=== PATIENT | male | born 1965 | race Caucasian/White ===

== ENCOUNTER 2024-01-04 15:27 | Emergency (ER) | payer OTHER ==
[~2024-01-04] VITALS: Ht 172.7 cm; Wt 78.9 kg
[2024-01-04] MEDS: IV NS 0.9% 1,000 ML BAG IV ONE (16:30)
[2024-01-04 16:54] LABS: BASOPHILS % (AUTO) 0.4 % (0.0-2.0); HEMATOCRIT 42 % (39-51); HEMOGLOBIN 13.7 g/dL (13.5-17.5); LYMPHOCYTES # (AUTO) 0.4 K/uL (0.8-4.8); LYMPHOCYTES % (AUTO) 5.7 % (20.0-44.0); MEAN CORPUSCULAR HEMOGLOBIN 31 PG (26.0-33.0); MEAN CORPUSCULAR HGB CONC 33 g/dl (31.0-36.0); MEAN CORPUSCULAR VOLUME 96 fL (80-96); MONOCYTES # (AUTO) 0.3 K/uL (0.1-1.30); MONOCYTES % (AUTO) 4.3 % (2.0-12.0); NEUTROPHILS # (AUTO) 5.7 K/uL (1.8-8.9); NEUTROPHILS % (AUTO) 89.6 % (43.0-81.0); PLATELET COUNT (AUTO) 110 K/uL (150-450); RED BLOOD CELL COUNT(AUTO) 4.35 MIL/uL (4.5-6.0); RED CELL DISTRIBUTION WIDTH 14.7 % (11.5-15.0); WHITE BLOOD COUNT (AUTO) 6.3 K/uL (4.3-11.0)
[2024-01-04 17:06] LABS: CALCIUM, SERUM 8.7 mg/dL (8.5-10.1); CREATININE 1.2 mg/dL (0.6-1.3); POTASSIUM 3.2 mmol/L (3.5-5.1)
[2024-01-04 17:22] LABS: BILIRUBIN,DIRECT 0.1 mg/dL (0.0-0.2); BILIRUBIN,TOTAL 0.3 mg/dL (0.2-1.0); TOTAL PROTEIN, SERUM 7.7 g/dL (6.4-8.2)
[2024-01-04 19:06] LABS: APPEARANCE,URINE CLEAR (CLEAR); BILIRUBIN,URINE NEGATIVE (NEGATIVE); BLOOD, URINE TRACE-INTA Ery/uL (NEGATIVE); COLOR,URINE YELLOW (YELLOW); KETONES,URINE 1+ mg/dL (NEGATIVE); LEUKOCYTE ESTERASE ,URINE NEGATIVE (NEGATIVE); NITRITE, URINE NEGATIVE (NEGATIVE); PROTEIN,URINE TRACE mg/dl (NEGATIVE); UGLUCOSE NEGATIVE (NEGATIVE); UROBILINOGEN,URINE 0.2 EU/dL (0.2)
[2024-01-04 19:08] LABS: WBC,URINE 0-2 /HPF (0-3)
[2024-01-04 19:09] LABS: ADD URINE CULTURE NO; BACTERIA,URINE None seen /HPF (None Seen)
[2024-01-04 20:16] VITALS: BP 126/85; TEMP 98.3; O2SAT 97
== END 2024-01-04 20:16 | disposition home or self-care (01) ==
LOC: EDBD 16:01 → ER 16:01
DX: T67.5XXA Heat exhaustion, unspecified, initial encounter (principal); E86.0 Dehydration; F19.10 Other psychoactive substance abuse, uncomplicated; F10.10 Alcohol abuse, uncomplicated; R42 Dizziness and giddiness; R00.0 Tachycardia, unspecified; Z60.2 Problems related to living alone; X58.XXXA Exposure to other specified factors, initial encounter; Y93.89 Activity, other specified; Y92.89 Other specified places as the place of occurrence of the external cause; Y99.8 Other external cause status; Y90.9 Presence of alcohol in blood, level not specified
CPT/HCPCS: 99283; 96360; 96361; 85025; 80048; 82550; 87086; 83690; 80076; 81001; 36415; 82553; J7030

== ENCOUNTER 2024-04-11 13:51 | Inpatient (IN) | payer OTHER ==
[~2024-04-11] VITALS: Ht 175.3 cm; Wt 77.8 kg
[2024-04-11] MEDS: EZETIMIBE 10 MG TABLET PO SCH (03:57)
[2024-04-11] MEDS: FINASTERIDE (5 MG) 5 MG TABLET PO SCH (03:57)
[2024-04-11] MEDS: clonazePAM 1 MG TABLET PO SCH (03:57)
[2024-04-11 15:10] LABS: BASOPHILS % (AUTO) 0.7 % (0.0-2.0); EOSINOPHILS % (AUTO) 0.4 % (0.0-6.0); HEMATOCRIT 40 % (39-51); HEMOGLOBIN 13.1 g/dL (13.5-17.5); LYMPHOCYTES # (AUTO) 1.3 K/uL (0.8-4.8); LYMPHOCYTES % (AUTO) 31.7 % (20.0-44.0); MEAN CORPUSCULAR HEMOGLOBIN 29 PG (26.0-33.0); MEAN CORPUSCULAR HGB CONC 33 g/dl (31.0-36.0); MEAN CORPUSCULAR VOLUME 90 fL (80-96); MONOCYTES # (AUTO) 0.3 K/uL (0.1-1.30); MONOCYTES % (AUTO) 8.5 % (2.0-12.0); NEUTROPHILS # (AUTO) 2.4 K/uL (1.8-8.9); NEUTROPHILS % (AUTO) 58.7 % (43.0-81.0); PLATELET COUNT (AUTO) 117 K/uL (150-450); RED BLOOD CELL COUNT(AUTO) 4.46 MIL/uL (4.5-6.0); RED CELL DISTRIBUTION WIDTH 13.8 % (11.5-15.0); WHITE BLOOD COUNT (AUTO) 4.1 K/uL (4.3-11.0)
[2024-04-11 15:39] LABS: ALANINE AMINOTRANSFERASE 27 U/L (12-78); ALBUMIN 3.8 g/dL (3.4-5.0); ALKALINE PHOSPHATASE 40 U/L (46-116); ASPARTATE AMINOTRANSFERASE 20 U/L (15-37); BILIRUBIN,DIRECT 0.1 mg/dL (0.0-0.2); BILIRUBIN,TOTAL 0.3 mg/dL (0.2-1.0); CALCIUM, SERUM 8.9 mg/dL (8.5-10.1); CARBON DIOXIDE 27 mmol/L (21-32); CHLORIDE 108 mmol/L (98-107); GLUCOSE 86 mg/dL (74-106); POTASSIUM 3.8 mmol/L (3.5-5.1); SODIUM SERUM 141 mmol/L (136-145); UREA NITROGEN, BLOOD 15 mg/dL (7-18)
[2024-04-11 15:41] LABS: ACETAMINOPHEN <10 ug/ml (10-30); ALCOHOL, BLOOD < 3 mg/dL (0-10)
[2024-04-11] MEDS: IV NS 0.9% 1,000 ML BAG IV ONE (16:17)
[2024-04-11] MEDS ORDERED: LORAZEPAM INJ 2 MG/ML VIAL IV ONE (17:00)
[2024-04-11 17:21] LABS: APPEARANCE,URINE CLEAR (CLEAR); BILIRUBIN,URINE 1+ (NEGATIVE); BLOOD, URINE NEGATIVE Ery/uL (NEGATIVE); COLOR,URINE DARK YELLOW (YELLOW); KETONES,URINE TRACE mg/dL (NEGATIVE); LEUKOCYTE ESTERASE ,URINE NEGATIVE (NEGATIVE); NITRITE, URINE NEGATIVE (NEGATIVE); PROTEIN,URINE TRACE mg/dl (NEGATIVE); UGLUCOSE NEGATIVE (NEGATIVE)
[2024-04-11 17:30] LABS: ADD URINE CULTURE YES; BACTERIA,URINE 1+ /HPF (None Seen); MUCUS,URINE Few /LPF (None Seen); SQUAMOUS EPITHELIAL CELL,UR None Seen /HPF (None Seen)
[2024-04-11 17:34] LABS: AMPHETAMINE, URINE NEGATIVE (NEGATIVE); BARBITURATE, URINE NEGATIVE (NEGATIVE); COCCAINE, URINE NEGATIVE (NEGATIVE); OPIATE, URINE NEGATIVE (NEGATIVE); PHENCYCLIDINE SCREEN,URINE NEGATIVE (NEGATIVE)
[2024-04-11] MEDS ORDERED: SERT100T PO (17:34)
[2024-04-11] MEDS ORDERED: ATOM18CA PO (17:34)
[2024-04-11] MEDS ORDERED: EZET10TA15 PO (17:34)
[2024-04-11] MEDS ORDERED: MONT10TA22 PO (17:34)
[2024-04-11] MEDS ORDERED: CETI10TA14 PO (17:34)
[2024-04-11] MEDS ORDERED: DOXE10CA2 PO (17:34)
[2024-04-11] MEDS ORDERED: BUSP10TA35 PO (17:34)
[2024-04-11] MEDS ORDERED: FLUT1DIS5 IH (17:34)
[2024-04-11] MEDS ORDERED: DIVA-78 PO (17:34)
[2024-04-11] MEDS ORDERED: QUET300T2 PO (17:34)
[2024-04-11] MEDS ORDERED: FOLI0.4T6 PO (17:34)
[2024-04-11] MEDS ORDERED: TRAZ-257 PO (17:34)
[2024-04-11] MEDS ORDERED: CLON1TAB PO (17:34)
[2024-04-11] MEDS ORDERED: ROSU40TA PO (17:34)
[2024-04-11] MEDS ORDERED: ASPI-1169 PO (17:34)
[2024-04-11] MEDS ORDERED: FINA5TAB4 PO (17:34)
[2024-04-11 17:36] LABS: BENZODIAZEPINE, URINE POSITIVE (NEGATIVE); CANNABINOID, URINE POSITIVE (NEGATIVE)
[2024-04-11] MEDS ORDERED: METHOCARBAMOL (500MG) 500 MG TABLET ONE (18:25)
[2024-04-11] MEDS: KETOROLAC TROMETHAMINE INJ 30 MG/ML VIAL IV ONE (18:32)
[2024-04-11] MEDS: METHOCARBAMOL (750MG) 750 MG TABLET PO SCH (18:32)
[2024-04-11] MEDS ORDERED: ONDANSETRON HCL/PF 4 MG/2 ML VIAL IVP PRN (20:00)
[2024-04-11] MEDS ORDERED: MAGNESIUM HYDROXIDE 30 ML UDC PO PRN (20:00)
[2024-04-11] MEDS ORDERED: ACETAMINOPHEN 325 MG TABLET PO PRN (20:00)
[2024-04-11] MEDS ORDERED: MAG HYDROX/AL HYDROX/SIMETH 30 ML UDC PO PRN (20:00)
[2024-04-11] MEDS ORDERED: Z GUARD REMEDY 4 OZ OINT TP PRN (20:00)
[2024-04-11] MEDS ORDERED: CEFTRIAXONE 1GM BAG (ER ONLY) 50 ML IV ONE (21:23)
[2024-04-11] MEDS: CEFTRIAXONE 1 G in IV D5W 50 ML IV SCH (21:30)
[2024-04-11] MEDS ORDERED: ATOMOXETINE HCL 18 MG PO SCH (22:00)
[2024-04-11] MEDS ORDERED: Medication Not On Formulary EA (Quetiapine Fumarate (Seroquel) 300 MG) PO SCH (22:00)
[2024-04-11] MEDS ORDERED: Medication Not On Formulary EA (Rosuvastatin Calcium (Crestor) 40 MG) PO SCH (22:00)
[2024-04-12] MEDS: METHOCARBAMOL (500MG) 500 MG TABLET PO SCH
[2024-04-12] MEDS ORDERED: clonazePAM 1 MG TABLET ONE (03:54)
[2024-04-12] MEDS ORDERED: EZETIMIBE 10 MG TABLET ONE (03:54)
[2024-04-12 08:33] LABS: BASOPHILS % (AUTO) 0.9 % (0.0-2.0); EOSINOPHILS % (AUTO) 0.7 % (0.0-6.0); HEMATOCRIT 41 % (39-51); HEMOGLOBIN 13.3 g/dL (13.5-17.5); LYMPHOCYTES # (AUTO) 1.7 K/uL (0.8-4.8); LYMPHOCYTES % (AUTO) 36.1 % (20.0-44.0); MEAN CORPUSCULAR HEMOGLOBIN 30 PG (26.0-33.0); MEAN CORPUSCULAR HGB CONC 32 g/dl (31.0-36.0); MEAN CORPUSCULAR VOLUME 92 fL (80-96); MONOCYTES # (AUTO) 0.5 K/uL (0.1-1.30); MONOCYTES % (AUTO) 10.3 % (2.0-12.0); NEUTROPHILS # (AUTO) 2.4 K/uL (1.8-8.9); PLATELET COUNT (AUTO) 105 K/uL (150-450); RED BLOOD CELL COUNT(AUTO) 4.52 MIL/uL (4.5-6.0); RED CELL DISTRIBUTION WIDTH 13.6 % (11.5-15.0); WHITE BLOOD COUNT (AUTO) 4.6 K/uL (4.3-11.0)
[2024-04-12] MEDS ORDERED: Medication Not On Formulary EA (Sertraline Hcl (Zoloft) 100 MG) PO SCH (09:00)
[2024-04-12] MEDS ORDERED: busPIRone HCL 10 MG TABLET PO SCH (09:00)
[2024-04-12] MEDS ORDERED: FLUTICASONE/SALMETEROL 1 DISK IH SCH (09:00)
[2024-04-12 09:01] LABS: ALBUMIN 3.7 g/dL (3.4-5.0); BILIRUBIN,DIRECT 0.1 mg/dL (0.0-0.2); BILIRUBIN,TOTAL 0.4 mg/dL (0.2-1.0); CALCIUM, SERUM 9.1 mg/dL (8.5-10.1); CREATININE 0.8 mg/dL (0.6-1.3); PHOSPHORUS 2.8 mg/dL (2.5-4.9); POTASSIUM 3.5 mmol/L (3.5-5.1)
[2024-04-12] MEDS: DOXEPIN HCL 10 MG CAPSULE PO SCH (10:04)
[2024-04-12] MEDS: ASPIRIN 81 MG TAB.CHEW PO SCH (10:04)
[2024-04-12] MEDS: cetrizine 10 MG TABLET PO SCH (10:04)
[2024-04-12] MEDS: MONTELUKAST SODIUM (10MG) 10 MG TABLET PO SCH (10:04)
[2024-04-12] MEDS: SERTRALINE HCL 50 MG TABLET PO SCH (10:05)
[2024-04-12] MEDS: DIVALPROEX SODIUM 500 MG TABLET.DR PO SCH (10:05)
[2024-04-12] MEDS: busPIRone 5 MG TABLET PO SCH (10:23)
[2024-04-12] MEDS: IV NS 0.9% 1,000 ML IV PRN (10:33)
[2024-04-12] MEDS: BUDESONIDE RESPULE INH 0.5 MG/2 ML AMPUL.NEB NEB SCH (15:00)
[2024-04-12 16:06] LABS: THYROID STIMULATING HORMONE 1.93 uIU/mL (0.358-3.74)
[2024-04-12 20:00] VITALS: BP 112/77; TEMP 98.4; O2SAT 95
[2024-04-12 20:28] VITALS: O2SAT 94
[2024-04-12 20:38] VITALS: O2SAT 99
[2024-04-12] MEDS: ALBUTEROL FS 2.5 MG/3 ML VIAL.NEB NEB SCH (20:49)
[2024-04-12] MEDS: ATORVASTATIN 40 MG TABLET PO SCH (21:48)
[2024-04-12] MEDS: QUETIAPINE FUMARATE 100 MG TABLET PO SCH (21:48)
[2024-04-12] MEDS: TRAZODONE 50 MG TABLET PO SCH (21:48)
[2024-04-12] MEDS: FOLIC ACID 1 MG TABLET PO SCH (21:48)
[2024-04-13] VITALS (10 sets, daily range): BP systolic 101–118; BP diastolic 69–85; TEMP 97.7–98.1; O2SAT 94–99
[2024-04-14 07:00] VITALS: BP 107/69; TEMP 97.9; O2SAT 97
[2024-04-14 07:05] LABS: BASOPHILS # (AUTO) 0.1 K/uL (0.0-0.2); BASOPHILS % (AUTO) 1.8 % (0.0-2.0); EOSINOPHILS # (AUTO) 0.1 K/uL (0.0-0.7); EOSINOPHILS % (AUTO) 2.4 % (0.0-6.0); HEMATOCRIT 35 % (39-51); HEMOGLOBIN 11.7 g/dL (13.5-17.5); LYMPHOCYTES % (AUTO) 51.8 % (20.0-44.0); MEAN CORPUSCULAR HEMOGLOBIN 30 PG (26.0-33.0); MEAN CORPUSCULAR HGB CONC 33 g/dl (31.0-36.0); MEAN CORPUSCULAR VOLUME 89 fL (80-96); MONOCYTES # (AUTO) 0.3 K/uL (0.1-1.30); MONOCYTES % (AUTO) 8.7 % (2.0-12.0); NEUTROPHILS # (AUTO) 1.4 K/uL (1.8-8.9); NEUTROPHILS % (AUTO) 35.3 % (43.0-81.0); PLATELET COUNT (AUTO) 111 K/uL (150-450); RED BLOOD CELL COUNT(AUTO) 3.98 MIL/uL (4.5-6.0); RED CELL DISTRIBUTION WIDTH 14.1 % (11.5-15.0); WHITE BLOOD COUNT (AUTO) 3.9 K/uL (4.3-11.0)
[2024-04-14 07:17] LABS: ALBUMIN 3.2 g/dL (3.4-5.0); BILIRUBIN,TOTAL 0.2 mg/dL (0.2-1.0); CALCIUM, SERUM 8.4 mg/dL (8.5-10.1); CREATININE 0.7 mg/dL (0.6-1.3); MAGNESIUM 1.9 mg/dL (1.8-2.4); PHOSPHORUS 3.8 mg/dL (2.5-4.9); POTASSIUM 3.7 mmol/L (3.5-5.1); TOTAL PROTEIN, SERUM 6.1 g/dL (6.4-8.2)
[2024-04-14 08:10] LABS: FOLIC ACID 17.4 ng/mL (>3.0)
[2024-04-14 08:27] VITALS: O2SAT 95
[2024-04-14 08:43] VITALS: O2SAT 98
[2024-04-14 16:00] VITALS: BP 107/90; TEMP 97.7; O2SAT 96
[2024-04-14] MEDS ORDERED: CLON2TAB PO (17:51)
[2024-04-14] MEDS ORDERED: clonazePAM 1 MG TABLET PO SCH (22:00)
== END 2024-04-14 18:41 | disposition home or self-care (01) | DRG 812 ==
LOC: ER 13:58 → TRANSITION 04-12 03:20 → TELE 04-12 09:26 → MED 04-13 11:39
PROVIDERS: ADMIT Nurse Practitioner Family; ATTEND Nurse Practitioner Family
DX: T40.711A Poisoning by cannabis, accidental (unintentional), initial encounter (principal); G92.8 Other toxic encephalopathy; D69.6 Thrombocytopenia, unspecified; F25.0 Schizoaffective disorder, bipolar type; G62.9 Polyneuropathy, unspecified; F10.11 Alcohol abuse, in remission; N40.0 Benign prostatic hyperplasia without lower urinary tract symptoms; D72.819 Decreased white blood cell count, unspecified; E78.5 Hyperlipidemia, unspecified; F41.9 Anxiety disorder, unspecified; F39 Unspecified mood [affective] disorder; R53.1 Weakness; T42.4X1A Poisoning by benzodiazepines, accidental (unintentional), initial encounter; F19.10 Other psychoactive substance abuse, uncomplicated; Y92.009 Unspecified place in unspecified non-institutional (private) residence as the place of occurrence of the external cause; M60.862 Other myositis, left lower leg; M60.861 Other myositis, right lower leg; J32.9 Chronic sinusitis, unspecified; Z20.822 Contact with and (suspected) exposure to COVID-19
CPT/HCPCS: 36415; 70450-TC; 71045-TC; 80048-TC; 80053-TC; 80076-TC; 80164-TC; 81001; 82085; 82140-TC; 82550-TC; 82607-TC; 83735-TC; 83921; 84100-TC; 84425; 84443-TC; 85025-TC; 94760-TC; 94799-TC; 97110-TC; 97116-TC; 97530-TC; A4223; G0378; G0480; J0696; J1885; J7030; J7060

== ENCOUNTER 2024-07-18 15:25 | Inpatient (IN) | payer OTHER ==
[~2024-07-18] VITALS: Ht 170.2 cm; Wt 69.4 kg
[~2024-07-18 15:25] MED LIST: ASPI-1169 PO; ATOM18CA PO; BUSP10TA35 PO; CETI10TA14 PO; CLON2TAB PO; DIVA-78 PO; DOXE10CA2 PO; EZET10TA15 PO; FINA5TAB4 PO; FLUT1DIS5 IH; FOLI0.4T6 PO; MONT10TA22 PO; QUET300T2 PO; ROSU40TA PO; SERT100T PO; TRAZ-257 PO
[2024-07-18] MEDS: IV NS 0.9% 1,000 ML IV ONE (16:55)
[2024-07-18 17:04] LABS: BASOPHILS # (AUTO) 0.1 K/uL (0.0-0.2); EOSINOPHILS % (AUTO) 0.6 % (0.0-6.0); HEMATOCRIT 37 % (39-51); HEMOGLOBIN 12.6 g/dL (13.5-17.5); LYMPHOCYTES # (AUTO) 2.1 K/uL (0.8-4.8); LYMPHOCYTES % (AUTO) 50.5 % (20.0-44.0); MEAN CORPUSCULAR HEMOGLOBIN 29 PG (26.0-33.0); MEAN CORPUSCULAR HGB CONC 34 g/dl (31.0-36.0); MEAN CORPUSCULAR VOLUME 87 fL (80-96); MONOCYTES # (AUTO) 0.3 K/uL (0.1-1.30); MONOCYTES % (AUTO) 7.8 % (2.0-12.0); NEUTROPHILS # (AUTO) 1.6 K/uL (1.8-8.9); NEUTROPHILS % (AUTO) 38.1 % (43.0-81.0); PLATELET COUNT (AUTO) 143 K/uL (150-450); RED BLOOD CELL COUNT(AUTO) 4.32 MIL/uL (4.5-6.0); RED CELL DISTRIBUTION WIDTH 13.7 % (11.5-15.0); WHITE BLOOD COUNT (AUTO) 4.2 K/uL (4.3-11.0)
[2024-07-18 17:12] LABS: CARBON DIOXIDE 29 mmol/L (21-32); CHLORIDE 107 mmol/L (98-107); GLUCOSE 115 mg/dL (74-106); POTASSIUM 4.1 mmol/L (3.5-5.1); SERUM AMMONIA 49 umol/L (11-32); SODIUM SERUM 142 mmol/L (136-145); UREA NITROGEN, BLOOD 18 mg/dL (7-18)
[2024-07-18 17:16] LABS: CREATINE KINASE, TOTAL 155 U/L (39-308)
[2024-07-18 17:35] LABS: ALANINE AMINOTRANSFERASE 56 U/L (12-78); ALBUMIN 3.7 g/dL (3.4-5.0); ALKALINE PHOSPHATASE 43 U/L (46-116); ASPARTATE AMINOTRANSFERASE 30 U/L (15-37); BILIRUBIN,TOTAL 0.3 mg/dL (0.2-1.0); NT-PRO BNP 110 pg/mL (0-125); TOTAL PROTEIN, SERUM 6.8 g/dL (6.4-8.2)
[2024-07-18 17:37] LABS: ALCOHOL, BLOOD < 3 mg/dL (0-10)
[2024-07-18 18:31] LABS: AMPHETAMINE, URINE NEGATIVE (NEGATIVE); BARBITURATE, URINE NEGATIVE (NEGATIVE); BENZODIAZEPINE, URINE POSITIVE (NEGATIVE); CANNABINOID, URINE POSITIVE (NEGATIVE); COCCAINE, URINE NEGATIVE (NEGATIVE); OPIATE, URINE NEGATIVE (NEGATIVE); PHENCYCLIDINE SCREEN,URINE NEGATIVE (NEGATIVE)
[2024-07-18 18:41] LABS: APPEARANCE,URINE CLEAR (CLEAR); BILIRUBIN,URINE NEGATIVE (NEGATIVE); BLOOD, URINE NEGATIVE Ery/uL (NEGATIVE); COLOR,URINE YELLOW (YELLOW); KETONES,URINE TRACE mg/dL (NEGATIVE); LEUKOCYTE ESTERASE ,URINE NEGATIVE (NEGATIVE); NITRITE, URINE NEGATIVE (NEGATIVE); PH,URINE 6.5 (5.0-8.0); PROTEIN,URINE TRACE mg/dl (NEGATIVE); UGLUCOSE NEGATIVE (NEGATIVE)
[2024-07-18 18:47] LABS: ADD URINE CULTURE NO; BACTERIA,URINE None seen /HPF (None Seen); RBC,URINE 0-2 /HPF (0-2); WBC,URINE 0-2 /HPF (0-3)
[2024-07-18 18:48] LABS: MUCUS,URINE Few /LPF (None Seen); SQUAMOUS EPITHELIAL CELL,UR 0-2 /HPF (None Seen)
[2024-07-18 20:56] VITALS: O2SAT 96
[2024-07-19] MEDS ORDERED: ACETAMINOPHEN 325 MG TABLET PO PRN (03:30)
[2024-07-19] MEDS ORDERED: ONDANSETRON HCL/PF 4 MG/2 ML VIAL IVP PRN (03:30)
[2024-07-19] MEDS ORDERED: MAG HYDROX/AL HYDROX/SIMETH 30 ML UDC PO PRN (03:30)
[2024-07-19] MEDS: ENOXAPARIN SODIUM 40 MG/0.4 ML DISP.SYRIN SQ SCH (03:40)
[2024-07-19] MEDS ORDERED: GABA100C PO (08:18)
[2024-07-19] MEDS ORDERED: CLON2TAB11 PO (08:18)
[2024-07-19] MEDS ORDERED: ZIPR80CA2 PO (08:18)
[2024-07-19] MEDS: THIAMINE HCL 100 MG TABLET PO SCH (08:29)
[2024-07-19] MEDS: FOLIC ACID 1 MG TABLET PO SCH (08:29)
[2024-07-19] MEDS: ASPIRIN 81 MG TAB.CHEW PO SCH (08:29)
[2024-07-19 08:37] VITALS: BP 106/83; TEMP 97.9; O2SAT 99
[2024-07-19] MEDS: busPIRone 5 MG TABLET PO SCH (12:39)
[2024-07-19 14:10] LABS: THYROID STIMULATING HORMONE 1.01 uIU/mL (0.358-3.74)
[2024-07-19 16:12] VITALS: BP 101/64; TEMP 97.7; O2SAT 97
[2024-07-19] MEDS: DIVALPROEX SODIUM 500 MG TABLET.DR PO SCH (17:19)
[2024-07-19] MEDS: GABAPENTIN 100 MG CAPSULE PO SCH (17:19)
[2024-07-19 20:00] VITALS: BP 111/87; TEMP 98.2; O2SAT 98
[2024-07-19] MEDS: EZETIMIBE 10 MG TABLET PO SCH (21:19)
[2024-07-19] MEDS: FINASTERIDE (5 MG) 5 MG TABLET PO SCH (21:19)
[2024-07-19] MEDS: DOXEPIN HCL 10 MG CAPSULE PO SCH (21:19)
[2024-07-19] MEDS: TRAZODONE 50 MG TABLET PO SCH (21:19)
[2024-07-19] MEDS: clonazePAM 1 MG TABLET PO SCH (21:19)
[2024-07-19] MEDS: QUETIAPINE FUMARATE 100 MG TABLET PO SCH (21:19)
[2024-07-19] MEDS: ATORVASTATIN 40 MG TABLET PO SCH (21:19)
[2024-07-19] MEDS ORDERED: ATORVASTATIN 10 MG TABLET PO SCH (22:00)
[2024-07-20] MEDS ORDERED: ATOMOXETINE HCL 18 MG PO SCH (09:00)
[2024-07-20] MEDS: SERTRALINE HCL 50 MG TABLET PO SCH (09:51)
[2024-07-20] MEDS: MONTELUKAST SODIUM (10MG) 10 MG TABLET PO SCH (09:52)
[2024-07-20] MEDS: cetrizine 10 MG TABLET PO SCH (09:52)
[2024-07-20] MEDS: FLUTICASONE/VILANTEROL 1 EACH BLST.W.DEV IH SCH (10:01)
[2024-07-20 10:08] LABS: FOLIC ACID > 20.0 ng/mL (>3.0)
[2024-07-20 16:00] VITALS: BP 101/74; TEMP 98.4; O2SAT 94
[2024-07-20 18:37] LABS: BASOPHILS # (AUTO) 0.1 K/uL (0.0-0.2); BASOPHILS % (AUTO) 1.5 % (0.0-2.0); EOSINOPHILS # (AUTO) 0.1 K/uL (0.0-0.7); EOSINOPHILS % (AUTO) 1.4 % (0.0-6.0); HEMATOCRIT 37 % (39-51); HEMOGLOBIN 12.6 g/dL (13.5-17.5); LYMPHOCYTES # (AUTO) 2.2 K/uL (0.8-4.8); LYMPHOCYTES % (AUTO) 56.6 % (20.0-44.0); MEAN CORPUSCULAR HEMOGLOBIN 30 PG (26.0-33.0); MEAN CORPUSCULAR HGB CONC 35 g/dl (31.0-36.0); MEAN CORPUSCULAR VOLUME 88 fL (80-96); MONOCYTES # (AUTO) 0.3 K/uL (0.1-1.30); MONOCYTES % (AUTO) 6.5 % (2.0-12.0); NEUTROPHILS # (AUTO) 1.3 K/uL (1.8-8.9); PLATELET COUNT (AUTO) 144 K/uL (150-450); RED BLOOD CELL COUNT(AUTO) 4.16 MIL/uL (4.5-6.0); RED CELL DISTRIBUTION WIDTH 13.6 % (11.5-15.0); WHITE BLOOD COUNT (AUTO) 3.9 K/uL (4.3-11.0)
[2024-07-20 19:36] LABS: CALCIUM, SERUM 9.1 mg/dL (8.5-10.1); CREATININE 0.9 mg/dL (0.6-1.3); PHOSPHORUS 4.7 mg/dL (2.5-4.9); POTASSIUM 3.9 mmol/L (3.5-5.1)
[2024-07-20 20:00] VITALS: BP 101/82; TEMP 98; O2SAT 96
[2024-07-21 07:00] VITALS: BP 96/70; TEMP 97.9; O2SAT 90
== END 2024-07-21 14:03 | disposition home or self-care (01) | DRG 42 ==
LOC: ER 15:28 → MED 23:31
PROVIDERS: ATTEND Nurse Practitioner Acute Care
DX: G12.29 Other motor neuron disease (principal); G72.1 Alcoholic myopathy; D61.818 Other pancytopenia; G93.41 Metabolic encephalopathy; R26.89 Other abnormalities of gait and mobility; R53.1 Weakness; R29.6 Repeated falls; E78.5 Hyperlipidemia, unspecified; F31.9 Bipolar disorder, unspecified; I25.10 Atherosclerotic heart disease of native coronary artery without angina pectoris; J45.909 Unspecified asthma, uncomplicated; Z79.82 Long term (current) use of aspirin; F41.9 Anxiety disorder, unspecified; F10.21 Alcohol dependence, in remission; N40.0 Benign prostatic hyperplasia without lower urinary tract symptoms; F10.26 Alcohol dependence with alcohol-induced persisting amnestic disorder; F19.10 Other psychoactive substance abuse, uncomplicated
CPT/HCPCS: 36415; 70450-TC; 71045-TC; 80048-TC; 80053-TC; 80061-TC; 81001; 82140-TC; 82550-TC; 82607-TC; 83735-TC; 83880; 83921; 84100-TC; 84425; 84443-TC; 84484-TC; 85025-TC; 87081-TC; 93307-TC; 97110-TC; 97116-TC; 97530-TC; G0378; G0480; J1650

== ENCOUNTER 2024-09-19 13:26 | Inpatient (IN) | payer OTHER ==
[~2024-09-19] VITALS: Ht 170.2 cm; Wt 85.3 kg
[~2024-09-19 13:26] MED LIST changes: -CLON2TAB PO; +CLON2TAB11 PO; +GABA100C PO; +ZIPR80CA2 PO
[2024-09-19] MEDS ORDERED: ONDANSETRON HCL/PF 4 MG/2 ML VIAL ONE (14:42)
[2024-09-19] MEDS: IV NS 0.9% 1,000 ML BAG IV ONE (14:45)
[2024-09-19] MEDS: ONDANSETRON HCL/PF 4 MG/2 ML VIAL IVP ONE (14:45)
[2024-09-19] MEDS: Thiamine 100 MG in IV D5W 50 ML IV SCH (15:02)
[2024-09-19 15:03] LABS: BASOPHILS # (AUTO) 0.1 K/uL (0.0-0.2); BASOPHILS % (AUTO) 1.3 % (0.0-2.0); EOSINOPHILS % (AUTO) 0.7 % (0.0-6.0); HEMATOCRIT 36 % (39-51); HEMOGLOBIN 11.7 g/dL (13.5-17.5); LYMPHOCYTES # (AUTO) 1.7 K/uL (0.8-4.8); LYMPHOCYTES % (AUTO) 37.4 % (20.0-44.0); MEAN CORPUSCULAR HEMOGLOBIN 29 PG (26.0-33.0); MEAN CORPUSCULAR HGB CONC 33 g/dl (31.0-36.0); MEAN CORPUSCULAR VOLUME 89 fL (80-96); MONOCYTES # (AUTO) 0.4 K/uL (0.1-1.30); MONOCYTES % (AUTO) 7.7 % (2.0-12.0); NEUTROPHILS # (AUTO) 2.4 K/uL (1.8-8.9); NEUTROPHILS % (AUTO) 52.9 % (43.0-81.0); PLATELET COUNT (AUTO) 178 K/uL (150-450); RED BLOOD CELL COUNT(AUTO) 3.99 MIL/uL (4.5-6.0); RED CELL DISTRIBUTION WIDTH 14.2 % (11.5-15.0); WHITE BLOOD COUNT (AUTO) 4.6 K/uL (4.3-11.0)
[2024-09-19 15:04] LABS: POTASSIUM 3.5 mmol/L (3.5-5.1)
[2024-09-19 15:10] LABS: ALBUMIN 3.7 g/dL (3.4-5.0); BILIRUBIN,DIRECT 0.1 mg/dL (0.0-0.2); BILIRUBIN,TOTAL 0.2 mg/dL (0.2-1.0); TOTAL PROTEIN, SERUM 7.2 g/dL (6.4-8.2)
[2024-09-19 15:18] LABS: THYROID STIMULATING HORMONE 1.22 uIU/mL (0.358-3.74)
[2024-09-19] MEDS ORDERED: TRAZ150T75 PO (15:20)
[2024-09-19 15:25] LABS: INR 1.05 (0.91-1.10); PARTIAL THROMBOPLASTIN TIME 26.2 SEC (24.3-34.3); PROTHROMBIN TIME 11.1 SECS (9.2-11.1)
[2024-09-19 15:36] VITALS: O2SAT 95
[2024-09-19] MEDS ORDERED: MAGNESIUM HYDROXIDE 30 ML UDC PO PRN (17:00)
[2024-09-19] MEDS ORDERED: MAG HYDROX/AL HYDROX/SIMETH 30 ML UDC PO PRN (17:00)
[2024-09-19] MEDS ORDERED: ONDANSETRON HCL/PF 4 MG/2 ML VIAL IVP PRN (17:00)
[2024-09-19] MEDS: IV NS 0.9% 1,000 ML IV ONE (17:41)
[2024-09-19 21:27] VITALS: BP 96/70; TEMP 97.5; O2SAT 93
[2024-09-20] MEDS: ACETAMINOPHEN 325 MG TABLET PO PRN (02:40)
[2024-09-20 04:39] VITALS: BP 106/79; TEMP 98.1; O2SAT 96
[2024-09-20] MEDS: PANTOPRAZOLE 40 MG TABLET.DR PO SCH (07:30)
[2024-09-20 08:00] VITALS: BP 113/74; TEMP 98.4; O2SAT 93
[2024-09-20] MEDS: MULTIVITAMINS,THERAGRAN 1 UDTAB TABLET PO SCH (08:34)
[2024-09-20] MEDS: THIAMINE HCL 100 MG TABLET PO SCH (08:35)
[2024-09-20] MEDS: FOLIC ACID 1 MG TABLET PO SCH (08:35)
[2024-09-20] MEDS ORDERED: LORAZEPAM INJ 2 MG/ML VIAL IV PRN (10:30)
[2024-09-20] MEDS ORDERED: LORAZEPAM INJ 2 MG/ML VIAL IM PRN (10:30)
[2024-09-20] MEDS: CHLORDIAZEPOXIDE HCL 25 MG CAPSULE PO SCH (10:32)
[2024-09-20 11:53] LABS: BASOPHILS # (AUTO) 0.1 K/uL (0.0-0.2); BASOPHILS % (AUTO) 0.9 % (0.0-2.0); EOSINOPHILS % (AUTO) 0.4 % (0.0-6.0); HEMATOCRIT 36 % (39-51); HEMOGLOBIN 12.1 g/dL (13.5-17.5); LYMPHOCYTES # (AUTO) 1.8 K/uL (0.8-4.8); LYMPHOCYTES % (AUTO) 29.1 % (20.0-44.0); MEAN CORPUSCULAR HEMOGLOBIN 30 PG (26.0-33.0); MEAN CORPUSCULAR HGB CONC 33 g/dl (31.0-36.0); MEAN CORPUSCULAR VOLUME 89 fL (80-96); MONOCYTES # (AUTO) 0.4 K/uL (0.1-1.30); MONOCYTES % (AUTO) 6.7 % (2.0-12.0); NEUTROPHILS # (AUTO) 3.8 K/uL (1.8-8.9); NEUTROPHILS % (AUTO) 62.9 % (43.0-81.0); PLATELET COUNT (AUTO) 167 K/uL (150-450); RED BLOOD CELL COUNT(AUTO) 4.09 MIL/uL (4.5-6.0); RED CELL DISTRIBUTION WIDTH 14.2 % (11.5-15.0); WHITE BLOOD COUNT (AUTO) 6.1 K/uL (4.3-11.0)
[2024-09-20 12:00] VITALS: BP 107/75; TEMP 98.4; O2SAT 93
[2024-09-20] MEDS ORDERED: ATOMOXETINE HCL 18 MG PO SCH (12:00)
[2024-09-20] MEDS: SERTRALINE HCL 50 MG TABLET PO SCH (12:17)
[2024-09-20] MEDS: busPIRone 5 MG TABLET PO SCH (12:18)
[2024-09-20] MEDS: MONTELUKAST SODIUM (10MG) 10 MG TABLET PO SCH (12:30)
[2024-09-20 12:33] LABS: CALCIUM, SERUM 9.2 mg/dL (8.5-10.1); CREATININE 0.8 mg/dL (0.6-1.3); MAGNESIUM 1.9 mg/dL (1.8-2.4); PHOSPHORUS 2.7 mg/dL (2.5-4.9); POTASSIUM 3.8 mmol/L (3.5-5.1)
[2024-09-20 14:40] VITALS: TEMP 97.6
[2024-09-20] MEDS: GABAPENTIN 100 MG CAPSULE PO SCH (16:37)
[2024-09-20] MEDS ORDERED: FINASTERIDE (5 MG) 5 MG TABLET PO SCH (22:00)
[2024-09-20] MEDS ORDERED: TRAZODONE 50 MG TABLET PO SCH (22:00)
[2024-09-20] MEDS ORDERED: EZETIMIBE 10 MG TABLET PO SCH (22:00)
[2024-09-20] MEDS ORDERED: ZIPRASIDONE 20 MG CAPSULE PO SCH (22:00)
[2024-09-20] MEDS ORDERED: QUETIAPINE FUMARATE 100 MG TABLET PO SCH (22:00)
[2024-09-20] MEDS ORDERED: DOXEPIN HCL 10 MG CAPSULE PO SCH (22:00)
[2024-09-20] MEDS ORDERED: clonazePAM 1 MG TABLET PO SCH (22:00)
[2024-09-20] MEDS ORDERED: ATORVASTATIN 10 MG TABLET PO SCH (22:00)
[2024-09-21] MEDS ORDERED: FLUTICASONE/VILANTEROL 1 EACH BLST.W.DEV IH SCH (09:00)
[2024-09-21] MEDS ORDERED: ASPIRIN 81 MG TAB.CHEW PO SCH (09:00)
[2024-09-21] MEDS ORDERED: FOLIC ACID 1 MG TABLET PO SCH (09:00)
== END 2024-09-20 17:38 | disposition left against medical advice (07) | DRG 422 ==
LOC: ER 13:26 → TELE 16:39
PROVIDERS: ATTEND Nurse Practitioner Acute Care
DX: E86.0 Dehydration (principal); G93.41 Metabolic encephalopathy; G72.1 Alcoholic myopathy; G12.29 Other motor neuron disease; E78.5 Hyperlipidemia, unspecified; I25.10 Atherosclerotic heart disease of native coronary artery without angina pectoris; J45.909 Unspecified asthma, uncomplicated; N40.0 Benign prostatic hyperplasia without lower urinary tract symptoms; Z79.82 Long term (current) use of aspirin; F31.9 Bipolar disorder, unspecified; R26.89 Other abnormalities of gait and mobility; G95.9 Disease of spinal cord, unspecified; F12.10 Cannabis abuse, uncomplicated; F10.26 Alcohol dependence with alcohol-induced persisting amnestic disorder
CPT/HCPCS: 36415; 70450-TC; 71045-TC; 73564-TC; 80048-TC; 80076-TC; 82140-TC; 82607-TC; 82962-TC; 83735-TC; 84100-TC; 84443-TC; 85025-TC; 85730-TC; 97116-TC; 97530-TC; A4223; G0378; G0480; J2405; J3411; J7030; J7060